=== PATIENT | female | born 1970 | race Caucasian/White ===

== ENCOUNTER 2023-01-29 14:03 | Emergency (ER) | payer OTHER, BC ==
[2023-01-29 14:12] VITALS: BP 131/80; PULSE 93; RESP 16; TEMP 98.6; BMI 40.7
[2023-01-29] MEDS ORDERED: ACETAMINOPHEN 500 MG TABLET (FP) PO ONE (15:17)
[2023-01-29] MEDS ORDERED: KETOROLAC TROMETHAMINE 30 MG/1 ML VIAL IM ONE (15:18)
[2023-01-29] MEDS ORDERED: KETOROLAC TROMETHAMINE 30 MG/1 ML VIAL ONE (15:21)
[2023-01-29] MEDS ORDERED: ACETAMINOPHEN 500 MG TABLET (FP) ONE (15:21)
== END 2023-01-29 16:53 | disposition home or self-care (01) ==
LOC: JERFT 14:03
PROC: 3E0233Z Introduction of Anti-inflammatory into Muscle, Percutaneous Approach (ICD-10-PCS; principal; 2023-01-29)
DX: M54.50 Low back pain, unspecified (principal); R42 Dizziness and giddiness; V49.40XA Driver injured in collision with unspecified motor vehicles in traffic accident, initial encounter
CPT/HCPCS: 70450-TC; 99284-25